=== PATIENT | male | born 1995 | race Two or more races ===

== ENCOUNTER 2022-04-28 21:19 | Emergency (ER) | payer BC ==
[~2022-04-28] VITALS: Ht 170.2 cm; Wt 72.5 kg
[2022-04-28] MEDS ORDERED: IBUPROFEN 400MG TABLET PO ONE (22:30)
[2022-04-28] MEDS ORDERED: IBUP-2028 MT (23:20)
[2022-04-28 23:41] VITALS: BP 132/87
== END 2022-04-28 23:42 | disposition home or self-care (01) ==
LOC: ER 21:35
DX: H92.02 Otalgia, left ear (principal)
CPT/HCPCS: 69200; 99284